=== PATIENT | male | born 1990 | race Caucasian/White ===

== ENCOUNTER 2016-05-06 14:56 | Emergency (ER) | payer MEDICAID ==
[~2016-05-06] VITALS: Ht 177.8 cm; Wt 73.9 kg
[2016-05-06 15:52] VITALS: BP 129/79
[2016-05-06 17:03] LABS: KETONES,URINE Trace (NEGATIVE); LEUKOCYTE ESTERASE ,URINE Negative (NEGATIVE); PH,URINE 6.5 (5.0-8.0)
[2016-05-06 17:11] LABS: ADD UA MICROSCOPIC YES
[2016-05-06 17:13] LABS: ADD URINE CULTURE NO; RBC,URINE 0-2 /HPF (0-2); WBC,URINE 0-2 /HPF (0-3)
== END 2016-05-06 18:07 | disposition home or self-care (01) ==
LOC: ER 15:00
DX: N48.89 Other specified disorders of penis (principal); N41.1 Chronic prostatitis; G89.29 Other chronic pain; J45.909 Unspecified asthma, uncomplicated
CPT/HCPCS: 81001; 99283; A4606; Z7610; 81000-TC